=== PATIENT | female | born 1990 | race Caucasian/White ===

== ENCOUNTER 2016-10-21 10:31 | Emergency (ER) | payer OTHER ==
[2016-10-21 11:08] VITALS: BP 121/77
--- NOTE | 2016-10-21 13:18 | UC ---
Dental HPI - HPI Summary HPI Summary: c/o upper and lower wisdom teeth coming in. last night, pain is making her cry. has dental appt in November. [ End ] - History of Current Complaint Chief Complaint: UCDentalProblem Stated Complaint: DENTAL PAIN Time Seen by Provider: 10/21/16 13:09 Hx Obtained From: Patient Hx Last Menstrual Period: 09/30/16 ?: No Onset/Duration: Gradual Onset Severity: Moderate Aggravating: Chewing Alleviating: OTC Meds Related History: Previous Dental Care on Same Tooth - Allergies/Home Medications Allergies/Adverse Reactions: Allergies Allergy/AdvReac Type Severity Reaction Status Date / Time No Known Allergies Allergy Verified 10/21/16 11:01 Home Medications: Home Medications Ibuprofen [Advil] 200 mg PO ONCE PRN 10/21/16 [History Confirmed 10/21/16] PMH/Surg Hx/FS Hx/Imm Hx Previously Healthy: Yes Endocrine History Of: Denies: Diabetes Cardiovascular History Of: Denies: Cardiac Disorders Respiratory History Of: Denies: COPD GI/ History Of: Denies: Gastroesophageal Reflux Neurological History Of: Denies: TIA - Surgical History Surgical History: None - Family History Known Family History: Positive: Respiratory Disease - asthma - Social History Occupation: Employed Full-time Lives: With Family Alcohol Use: Occasionally Substance Use Type: None Smoking Status (MU): Heavy Every Day Tobacco Smoker Type: Cigarettes Amount Used/How Often: 1/2 pack daily Cessation Counseling: Patient Advised to Stop Review of Systems Constitutional: Negative Skin: Negative Eyes: Negative ENT: Dental Pain Respiratory: Negative Cardiovascular: Negative Gastrointestinal: Negative Genitourinary: Negative Motor: Negative Neurovascular: Negative Musculoskeletal: Negative Neurological: Negative Psychological: Negative All Other Systems Reviewed And Are Negative: Yes Physical Exam Triage Information Reviewed: Yes Appearance: Well-Appearing, No Pain Distress, Well-Nourished Vital Signs: Initial Vital Signs Temp 99.5 F 10/21/16 11:02 Pulse 124 10/21/16 11:02 Resp 18 10/21/16 11:02 BP 121/77 10/21/16 11:02 Pulse Ox 100 10/21/16 11:02 Vital Signs Reviewed: Yes Eye Exam: Normal ENT Exam: Normal ENT: Positive: Normal ENT inspection Dental: Positive: Percussion Tenderness @, Abscess @. Negative: Dental Fracture @ Neck exam: Normal Neck: Positive: 1 Respiratory Exam: Normal Cardiovascular Exam: Normal Musculoskeletal Exam: Normal Neurological Exam: Normal Psychological Exam: Normal Skin Exam: Normal Dental Complaint Course/Dx - Course Course Of Treatment: Call dentist and get in sooner and STOP SMOKING! - Differential Dx/Diagnosis Differential Diagnosis/Dx: Dental Abscess, Dental Caries, Fractured Tooth, Odontogenic Pain Provider Diagnoses: dental abscess Discharge - Discharge Plan Condition: Good Disposition: HOME Patient Education Materials: Dental Abscess (ED) Images Dental: 1 - redness, swelling and tenderness to percussion
== END 2016-10-21 13:26 | disposition home or self-care (01) ==
LOC: UCCORT 10:31
DX: K04.7 Periapical abscess without sinus (principal); F17.210 Nicotine dependence, cigarettes, uncomplicated; Z71.6 Tobacco abuse counseling
CPT/HCPCS: 99212; G0463